=== PATIENT | male | born 1970 | race African-American/Black ===

== ENCOUNTER 2019-12-18 08:53 | Inpatient (IN) | payer OTHER ==
--- OUTSIDE RECORDS SUMMARY | 2019-12-18 08:56 | XMS ---
:1970 [facility] Organization [facility] Support Name Relationship Address Phone UE Unavailable Unavailable Unavailable DAKSHA GILLETTE SELF / SAME PATIENT [address] [place] [address] Re-disclosure Warning The records that you are about to access may contain information from federally- assisted alcohol or drug abuse programs. If such information is present, then the following federally mandated warning applies: This information has been disclosed to you from records protected by federal confidentiality rules (42 CFR part 2). The federal rules prohibit you from making any further disclosure of this information unless further disclosure is expressly permitted by the written consent of the person to whom it pertains or as otherwise permitted by 42 CFR part 2. A general authorization for the release of medical or other information is NOT sufficient for this purpose. The Federal rules restrict any use of the information to criminally investigate or prosecute any alcohol or drug abuse patient.The records that you are about to access may contain highly sensitive health information, the redisclosure of which is protected by Article 27-F of the [facility] Public Health law. If you continue you may haveaccess to information: Regarding HIV / AIDS; Provided by facilities licensed or operated by the [facility] Office of Mental Health; or Provided by the [facility] Office for People With Developmental Disabilities. If such information is present, then the following [facility] mandated warning applies: This information has been disclosed to you from confidential records which are protected by state law. State law prohibits you from making any further disclosure of this information without the specific written consent of the person to whom it pertains, or as otherwise permitted by law. Any unauthorized further disclosure in violation of state law may result in a fine or fpc sentence or both. A general authorization for the release of medical or other information is NOT sufficient authorization for further disclosure. Insurance Providers Payer name Policy type Policy ID Covered Covered constitution party's Policy P sudha / Coverage constitution party ID relationship to Brock Inf ormation type brock BEACON [id number] [address] [place] [address] STRGY-AFF Results ID Date Data Source [id number] 11/12/2019 03:22:00 AM EDT [facility] Name Value Range Interpretation Code Description Data Ca rce(s) Supporting Document(s ) SARS-CoV-2 [facility] RNA [facility] Ql ESTHELA+probe This lab was ordered by [facility] a nd reported by [facility]. ID Date Data Source [id number] 09/06/2019 02:51:00 AM EDT [facility] Name Value Range Interpretation Code Description Data Ca rce(s) Supporting Document(s ) SARS-CoV-2 [facility] RNA [facility] Ql ESTHELA+probe This lab was ordered by [facility] a nd reported by [facility]. Procedure
--- NOTE | 2019-12-18 09:12 | BHS.RME ---
Substance Use & Tx History - Substance Use History Alcohol Substance amount: 1.5 liters of vodka, 1-2 40oz Frequency of use: Daily Substance route: Oral Date of Last Use: 12/17/19 - Last Treatment Date of last treatment: 1st time Physical/Psych/Mental Status - Behavior General Behavior: Increased activity (restlessness, agitation) Eye Contact: Normal Other Behaviors: Mannerisms - Cooperativeness Cooperativeness: Cooperative - Thinking Thought Processes: Tight, Logical, Goal Directed Thought content: Future oriented - Physical Health Problems Is patient presently having any pain?: Yes Does patient presently have any injuries (include location): No Does patient currently have a fever: No CIWA Nausea/Vomitin Muscle Tremors: 2 Anxiety: 2 Agitation: 2 Paroxysmal Sweats: 2 Orientation: 0-Oriented Tacttile Disturbances: 1-Very Mild Itch/Numbness Auditory Disturbances: 1-Very Mild Visual Disturbances: 1-Very Mild Sensitivity Headache: 2-Mild CIWA-Ar Total Score: 16
[2019-12-18 09:31] VITALS: BMI 21.8
--- NOTE | 2019-12-18 09:38 | HP ---
CIWA Score Nausea/Vomitin Muscle Tremors: 2 Anxiety: 2 Agitation: 2 Paroxysmal Sweats: 2 Orientation: 0-Oriented Tacttile Disturbances: 1-Very Mild Itch/Numbness Auditory Disturbances: 1-Very Mild Visual Disturbances: 1-Very Mild Sensitivity Headache: 2-Mild CIWA-Ar Total Score: 16 - Admission Criteria OASAS Guidelines: Admission for Medically Managed Detox: Requires at least one of the followin. CIWA greater than 12 2. Seizures within the past 24 hours 3. Delirium tremens within the past 24 hours 4. Hallucinations within the past 24 hours 5. Acute intervention needed for co occurring medical disorder 6. Acute intervention needed for co occurring psychiatric disorder 7. Severe withdrawal that cannot be handled at a lower level of care (continued vomiting, continued diarrhea, abnormal vital signs) requiring intravenous medication and/or fluids 8. Patient presents the following: CIWA greater than 12 Admission Criteria Met: Admission criteria met Admission ROS [facility] Chief Complaint: 1 am withdrawing, I am sick Allergies/Adverse Reactions: Allergies Allergy/AdvReac Type Severity Reaction Status Date / Time hydrochlorothiazide Allergy Verified 12/18/19 09:49 lisinopril AdvReac Verified 12/18/19 09:49 History of Present Illness: Patient was here for detox on 12/16 but did not meet criteria, he presents this morning for alcohol detox. Patient reports severe GERD, on medication and reports compliance. He reports he has been vomiting since last night and this morning, he vomited blood, not witnessed by staff. He is being monitored, will send to ED if report is confirmed. He has BGM during is 320, 6 units of novolog ordered, he has been non-compliant with his medication.. Exam Limitations: No Limitations - Ebola screening Have you traveled outside of the country in the last 21 days: No Have you had contact with anyone from an Ebola affected area: No Have you been sick,other than usual withdrawal symptoms: No Do you have a fever: No - Review of Systems Constitutional: Chills, Changes in sleep EENT: reports: Blurred Vision (in the left eye, right eye blindness), Dental Problems Respiratory: reports: Cough, SOB with Exertion Cardiac: reports: No Symptoms Reported GI: reports: Nausea, Vomiting, Indigestion, Abdominal cramping, Other (epigastric pain) Musculoskeletal: reports: Back Pain, Muscle Pain, Muscle Weakness, Other (bulging herniated disc) Integumentary: reports: Sweating Neuro: reports: Headache, Tremors Endocrine: reports: No Symptoms Reported Hematology: reports: No Symptoms Reported Psychiatric: reports: No Sypmtoms Reported Other Systems: Reviewed and Negative Patient History - Patient Medical History Hx Anemia: No Hx Asthma: Yes Hx Chronic Obstructive Pulmonary Disease (COPD): Yes Hx Cancer: No Hx Cardiac Disorders: No Hx Congestive Heart Failure: No Hx Hypertension: Yes Hx Hypercholesterolemia: Yes Hx Pacemaker: No HX Cerebrovascular Accident: No Hx Seizures: No Hx Dementia: No Hx Diabetes: Yes Hx Gastrointestinal Disorders: Yes (GERD) Hx Liver Disease: No Hx Genitourinary Disorders: No Hx Sexually Transmitted Disorders: No Hx Renal Disease (ESRD): No Hx Thyroid Disease: No Hx Human Immunodeficiency Virus (HIV): No Hx Hepatitis C: No Hx Depression: No Hx Suicide Attempt: No Hx Bipolar Disorder: No Hx Schizophrenia: No Other Medical History: BPH, herniated disc - Patient Surgical History Past Surgical History: Yes Other Surgical History: Right eye corneal transplant in 2006 Anesthesia Reaction: No - PPD History Previous Implant?: Yes Documented Results: Negative w/proof Implanted On Prior [facility] Admission?: No PPD to be Administered?: Yes - Smoking Cessation Smoking history: Current every day smoker Have you smoked in the past 12 months: Yes Aproximately how many cigarettes per day: 13 Hx Chewing Tobacco Use: No Initiated information on smoking cessation: Yes 'Breaking Loose' booklet given: 12/18/19 - Substance & Tx. History Hx Alcohol Use: Yes Hx Substance Use: No Substance Use Type: Alcohol Hx Substance Use Treatment: No - Substances abused Alcohol Other (specify): vodka Amount used: 1.5 L Age of first use: 20 Date of last use: 12/17/19 Admission Physical Exam BHS - Vital Signs Vital Signs: Vital Signs - 24 hr 12/18/19 09:27 Temperature 97.3 F L Pulse Rate 99 H Respiratory 18 Rate Blood Pressure 135/97 - Physical General Appearance: Yes: No Apparent Distress, Irritable, Sweating HEENTM: Yes: Hearing grossly Normal, Normal Voice, Other (right eye blindness) Respiratory: Yes: Chest Non-Tender, Lungs Clear, No Respiratory Distress, No Accessory Muscle Use Neck: Yes: No masses,lesions,Nodules, Supple Breast: Yes: Breast Exam Deferred Cardiology: Yes: Regular Rhythm, Regular Rate, S1, S2 Abdominal: Yes: Normal Bowel Sounds, Non Tender, Soft Genitourinary: Yes: Hesitency Back: Yes: Normal Inspection Musculoskeletal: Yes: full range of Motion, Gait Steady Extremities: Yes: Normal Range of Motion, Tremors, Other (mycotic nails) Neurological: Yes: Fully Oriented, Alert, Normal Mood/Affect, Normal Response Integumentary: Yes: Normal Color, Clammy Lymphatic: Yes: Within Normal Limits - Diagnostic (1) Alcohol dependence with withdrawal, uncomplicated Current Visit: Yes Status: Acute (2) HTN (hypertension) Current Visit: Yes Status: Chronic Qualifiers: Hypertension type: essential hypertension Qualified Code(s): I10 - Essential (primary) hypertension (3) Diabetes mellitus Current Visit: Yes Status: Chronic Qualifiers: Diabetes mellitus type: type 2 Diabetes mellitus fdc insulin use: with 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 Diabetes mellitus complication status: with neurologic complications Diabetes mellitus complication detail: with polyneuropathy Qu alified Code(s): E11.42 - Type 2 diabetes mellitus with diabetic polyneuropathy; 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 (4) Chronic GERD Current Visit: Yes Status: Acute (5) Herniated disc Current Visit: Yes Status: Chronic Qualifiers: Spinal region: lumbar Qualified Code(s): M51.26 - Other intervertebral disc displacement, lumbar region (6) BPH (benign prostatic hyperplasia) Current Visit: Yes Status: Acute Qualifiers: Lower urinary tract symptom presence: symptoms present Lower urinary tract symptom detail: urinary hesitancy Qualified Code(s): N40.1 - Benign prostatic hyperplasia with lower urinary tract symptoms; R39.11 - Hesitancy of micturition (7) COPD (chronic obstructive pulmonary disease) Current Visit: Yes Status: Chronic Qualifiers: COPD type: chronic bronchitis Cleared for Admission S - Detox or Rehab [facility] Level of Care: Medically Managed Detox Regimen/Protocol: Librium Claeared for Rehab Admission: No Breathalyzer - Breathalyzer Breathalyzer: 0 Urine Drug Screen - Test Device Lot number: [id number] Expiration date: 07/05/21 - Control Is test valid?: Yes - Results Drug screen NEGATIVE: Yes Inpatient Rehab Admission - Rehab Decision to Admit Inpatient rehab admission?: No
--- OUTSIDE RECORDS SUMMARY | 2019-12-18 09:46 | XMS ---
:1970 [facility] Support Name Relationship Address Phone UE Unavailable Unavailable Unavailable DAKSHA GILLETTE SELF / SAME PATIENT [address] [place] [address] Re-disclosure Warning The records that you are [...] is protected by Article 27-F of the [facility] Public Health law. If you continue you may haveaccess to information: Regarding HIV / AIDS; Provided by facilities licensed or operated by the [facility] Office of Mental Health; or Provided by the [facility] Office for People With Developmental Disabilities. If such information is present, then the following [facility] mandated warning applies: This information has [...] law may result in a fine or senior living sentence or both. A general authorization for the release of medical or other information is NOT sufficient authorization for further disclosure. Insurance Providers Payer name Policy type Policy ID Covered Covered libertarian's Policy P sudha / Coverage libertarian ID relationship to Brock Inf ormation type brock BEACON [id number] [address] [place] [address] STRGY-AFF Results ID Date Data Source [id number] 11/12/2019 03:22:00 AM EDT [facility] Name Value Range Interpretation Code Description Data Ca rce(s) Supporting Document(s ) SARS-CoV-2 [facility] RNA [facility] Ql ESTHELA+probe This lab was ordered by [facility] a nd reported by [facility]. ID Date Data Source [id number] 09/06/2019 02:51:00 AM EDT [facility] Name Value Range Interpretation Code Description Data Ca rce(s) Supporting Document(s ) SARS-CoV-2 [facility] RNA [facility] Ql ESTHELA+probe This lab was ordered by [facility] a nd reported by [facility]. Procedure
[2019-12-18] MEDS ORDERED: MAGNESIUM CITRATE 300 ML BOTTLE PO PRN (10:02)
[2019-12-18] MEDS ORDERED: BISMUTH SUBSALICYLATE 524 MG/30 ML UD PO PRN (10:02)
[2019-12-18] MEDS ORDERED: chlordiazePOXIDE HCL 25 MG CAPSULE PO PRN (10:02)
[2019-12-18] MEDS ORDERED: NICOTINE POLACRILEX 2 MG GUM BUC PRN (10:02)
[2019-12-18] MEDS ORDERED: MENTHOL/PHENOL 1 EACH UD MM PRN (10:02)
[2019-12-18] MEDS ORDERED: METHOCARBAMOL 500 MG TABLET PO PRN (10:02)
[2019-12-18] MEDS ORDERED: hydrOXYzine PAMOATE 25 MG CAPSULE (FP) PO PRN (10:02)
[2019-12-18] MEDS ORDERED: IBUPROFEN 400 MG TABLET (FP) PO PRN (10:02)
[2019-12-18] MEDS ORDERED: ACETAMINOPHEN 325 MG TABLET (FP) PO PRN ×2 (10:02)
[2019-12-18] MEDS ORDERED: MAGNESIUM HYDROX 2400MG/30ML ORAL SUSPENSION 30 ML CUP PO PRN (10:02)
[2019-12-18] MEDS ORDERED: INSULIN (NOVOLOG) ASPART 100 UNITS/ML 10ML VIAL SQ ONE (10:09)
[2019-12-18] MEDS ORDERED: ALBUTEROL SO4 HFA INHALER IH PRN (10:15)
[2019-12-18] MEDS ORDERED: INSULIN SLIDING SCALE (NOVOLOG) 1 VIAL SQ ONE (10:53)
[2019-12-18] MEDS: TAMSULOSIN HCL 0.4 MG CAP PO SCH (11:00)
[2019-12-18] MEDS: chlordiazePOXIDE HCL 25 MG CAPSULE PO SCH ×3 (11:00→22:49)
[2019-12-18] MEDS: PANTOPRAZOLE 40 MG TABLET PO SCH (11:01)
[2019-12-18] MEDS: ONDANSETRON *ODT* 4 MG TABLET SL PRN (11:02)
[2019-12-18] MEDS: INSULIN (NOVOLOG MIX 70/30) 100 UNITS/ML MDV SQ SCH (17:43)
[2019-12-18] MEDS: THIAMINE HCL 100 MG TABLET (FP) PO SCH (22:49)
[2019-12-18] MEDS: MELATONIN 5 MG TABLETS PO SCH (22:50)
[2019-12-19] MEDS: chlordiazePOXIDE HCL 25 MG CAPSULE PO SCH ×4 (06:22→22:17)
[2019-12-19] MEDS ORDERED: INSULIN (NOVOLOG MIX 70/30) 100 UNITS/ML MDV SQ SCH (08:50)
--- NOTE | 2019-12-19 10:03 | PN ---
S CIWA - CIWA Score Nausea/Vomitin-No Nausea/No Vomiting Muscle Tremors: 3 Anxiety: 3 Agitation: 3 Paroxysmal Sweats: 3 Orientation: 0-Oriented Tacttile Disturbances: 0-None Auditory Disturbances: 0-None Visual Disturbances: 0-None Headache: 0-None Present CIWA-Ar Total Score: 12 BHS Progress Note (SOAP) Subjective: sweats shakes interrupted sleep agitation chills Objective: 12/19/19 10:02 Vital Signs Temperature 97.3 F L 12/19/19 08:29 Pulse Rate 94 H 12/19/19 08:29 Respiratory Rate 12/19/19 08:29 Blood Pressure 133/86 12/19/19 08:29 O2 Sat by Pulse Oximetry (%) 98 12/19/19 08:29 Laboratory Tests 12/18/19 12/19/19 10:08 06:10 POC Glucometer 320 328 rest of labs pending aaox3 ambulating no acute distress Assessment: 12/19/19 10:06 withdrawals Plan: continue detox increase fluids pending labs motrin 800mg prn insulin s/s adjusted as per pt request. gabapentin 600mg q daily ordered as verified by his pharmacy
[2019-12-19] MEDS: NICOTINE 7 MG/24 HOURS TOPICAL PATCH TD SCH (10:24)
[2019-12-19] MEDS: TAMSULOSIN HCL 0.4 MG CAP PO SCH (10:24)
[2019-12-19] MEDS: PANTOPRAZOLE 40 MG TABLET PO SCH (10:24)
[2019-12-19] MEDS: PRENATAL VITAMINS W/ FOLIC ACID TABLET (FP) PO SCH (10:24)
[2019-12-19] MEDS ORDERED: INSULIN (NOVOLOG) ASPART 100 UNITS/ML 10ML VIAL SQ SCH ×2 (11:00→11:30)
[2019-12-19] MEDS ORDERED: INSULIN SLIDING SCALE (NOVOLOG) 1 VIAL SQ ONE (11:58)
[2019-12-19] MEDS ORDERED: INSULIN (NOVOLOG MIX 70/30) 100 UNITS/ML MDV SQ ONE (12:11)
[2019-12-19] MEDS ORDERED: INSULIN (NOVOLOG) ASPART 100 UNITS/ML 10ML VIAL SQ ONE (12:15)
[2019-12-19] MEDS: INSULIN (NOVOLOG MIX 70/30) 100 UNITS/ML MDV SQ SCH (12:24)
[2019-12-19 12:25] LABS: HEMATOCRIT 46.2 % (35.4-49); MCH 30.8 pg (25.7-33.7); MCHC 34.5 g/dl (32.0-35.9); MEAN CELL VOLUME 89.3 fl (80-96); MEAN PLT VOLUME 9.4 fl (7.5-11.1); PLATELET COUNT 175 K/MM3 (134-434); RBC 5.17 M/mm3 (4.00-5.60); WHITE BLOOD COUNT 5.2 K/mm3 (4.0-10.0)
[2019-12-19] MEDS ORDERED: amLODIPine BESYLATE 10 MG TABLET (FP) PO ONE (12:30)
[2019-12-19 12:52] LABS: ALBUMIN 3.9 g/dl (3.4-5.0); BILIRUBIN,TOTAL 0.9 mg/dL (0.2-1); BLOOD UREA NITROGEN 10.4 mg/dL (7-18); CALCIUM 8.7 mg/dL (8.5-10.1); CREATININE 0.9 mg/dL (0.55-1.3); POTASSIUM 4.5 mmol/L (3.5-5.1); TOT PROT 7.4 g/dl (6.4-8.2)
[2019-12-19] MEDS: GABAPENTIN 300 MG CAPSULE PO SCH (12:53)
[2019-12-19] MEDS: IBUPROFEN 400 MG TABLET (FP) PO PRN ×2 (12:56→22:20)
[2019-12-19] MEDS: GEMFIBROZIL 600 MG TABLET (FP) PO SCH (16:59)
[2019-12-19] MEDS: INSULIN SLIDING SCALE (NOVOLOG) 1 VIAL SQ SCH (17:04)
[2019-12-19] MEDS: THIAMINE HCL 100 MG TABLET (FP) PO SCH (22:17)
[2019-12-19] MEDS: MAG HYDROX/AL HYDROX/SIMETH 30 ML UNIT-DOSE CUP PO PRN (22:23)
[2019-12-19] MEDS: MELATONIN 5 MG TABLETS PO SCH (22:29)
[2019-12-20] MEDS: chlordiazePOXIDE HCL 25 MG CAPSULE PO SCH ×4 (06:33→22:26)
[2019-12-20] MEDS: GEMFIBROZIL 600 MG TABLET (FP) PO SCH ×2 (06:33→17:34)
[2019-12-20] MEDS: INSULIN SLIDING SCALE (NOVOLOG) 1 VIAL SQ SCH ×2 (06:44→17:38)
[2019-12-20] MEDS: INSULIN (NOVOLOG MIX 70/30) 100 UNITS/ML MDV SQ SCH (07:13)
[2019-12-20] MEDS: amLODIPine BESYLATE 10 MG TABLET (FP) PO SCH (10:58)
[2019-12-20] MEDS: PANTOPRAZOLE 40 MG TABLET PO SCH (10:58)
[2019-12-20] MEDS: TAMSULOSIN HCL 0.4 MG CAP PO SCH (10:58)
[2019-12-20] MEDS: GABAPENTIN 300 MG CAPSULE PO SCH (10:58)
[2019-12-20] MEDS: NICOTINE 7 MG/24 HOURS TOPICAL PATCH TD SCH (10:59)
[2019-12-20] MEDS: PRENATAL VITAMINS W/ FOLIC ACID TABLET (FP) PO SCH (10:59)
[2019-12-20] MEDS: MAG HYDROX/AL HYDROX/SIMETH 30 ML UNIT-DOSE CUP PO PRN (11:00)
--- NOTE | 2019-12-20 12:13 | PN ---
[facility] CIWA - CIWA Score Nausea/Vomitin-No Nausea/No Vomiting Muscle Tremors: 3 Anxiety: 3 Agitation: 3 Paroxysmal Sweats: 2 Orientation: 0-Oriented Tacttile Disturbances: 0-None Auditory Disturbances: 0-None Visual Disturbances: 0-None Headache: 0-None Present CIWA-Ar Total Score: 11 S Progress Note (SOAP) Subjective: gassy sweats interrupted sleep Objective: 12/20/19 12:10 Vital Signs Temperature 95.3 F L 12/20/19 09:15 Pulse Rate 71 12/20/19 09:15 Respiratory Rate 12/20/19 09:15 Blood Pressure 110/66 12/20/19 09:15 O2 Sat by Pulse Oximetry (%) 98 12/20/19 09:15 Laboratory Tests 12/18/19 12/18/19 12/19/19 08:30 10:08 06:10 WBC RBC Hgb Hct MCV MCH MCHC RDW Plt Count MPV Sodium Potassium Chloride Carbon Dioxide Anion Gap BUN Creatinine Est GFR (CKD-EPI)AfAm Est GFR (CKD-EPI)NonAf POC Glucometer 320 328 Random Glucose Calcium Total Bilirubin AST ALT Alkaline Phosphatase Total Protein Albumin Syphilis Serology Non-reactive 12/19/19 12/19/19 12/19/19 08:30 08:30 11:50 WBC 5.2 RBC 5.17 Hgb 16.0 Hct 46.2 MCV 89.3 MCH 30.8 MCHC 34.5 RDW 14.0 Plt Count 175 MPV 9.4 Sodium 132 L Potassium 4.5 Chloride 93 L Carbon Dioxide 27 Anion Gap 11 BUN 10.4 Creatinine 0.9 Est GFR (CKD-EPI)AfAm 115.83 Est GFR (CKD-EPI)NonAf 99.94 POC Glucometer 550 Random Glucose 360 H Calcium 8.7 Total Bilirubin 0.9 AST 35 ALT 43 Alkaline Phosphatase 70 Total Protein 7.4 Albumin 3.9 Syphilis Serology 12/19/19 12/20/19 16:52 06:22 WBC RBC Hgb Hct MCV MCH MCHC RDW Plt Count MPV Sodium Potassium Chloride Carbon Dioxide Anion Gap BUN Creatinine Est GFR (CKD-EPI)AfAm Est GFR (CKD-EPI)NonAf POC Glucometer 238 443 Random Glucose Calcium Total Bilirubin AST ALT Alkaline Phosphatase Total Protein Albumin Syphilis Serology labs noted BGM noted aaox3 ambulating no acute distress Assessment: 12/20/19 12:12 withdrawals sx Plan: continue detox gas x ordered prn BID changed to TID along with sliding scale
[2019-12-20] MEDS: IBUPROFEN 400 MG TABLET (FP) PO PRN ×2 (12:55→22:29)
[2019-12-20] MEDS ORDERED: guaiFENesin 200 MG/10 ML 10 ML UNIT-DOSE CUPS PO PRN (14:00)
[2019-12-20] MEDS: SIMETHICONE 80 MG TAB.CHEW (FP) PO PRN (15:17)
[2019-12-20] MEDS ORDERED: INSULIN SLIDING SCALE (NOVOLOG) 1 VIAL SQ ONE (17:20)
[2019-12-20] MEDS: MELATONIN 5 MG TABLETS PO SCH (22:26)
[2019-12-20] MEDS: THIAMINE HCL 100 MG TABLET (FP) PO SCH (22:26)
[2019-12-21] MEDS ORDERED: chlordiazePOXIDE HCL 10 MG CAPSULE PO PRN
[2019-12-21] MEDS: chlordiazePOXIDE HCL 10 MG CAPSULE PO SCH ×4 (07:00→23:57)
[2019-12-21] MEDS: GEMFIBROZIL 600 MG TABLET (FP) PO SCH ×2 (07:01→17:31)
[2019-12-21] MEDS ORDERED: INSULIN (NOVOLOG MIX 70/30) 100 UNITS/ML MDV SQ ONE (07:27)
[2019-12-21] MEDS: INSULIN SLIDING SCALE (NOVOLOG) 1 VIAL SQ SCH ×3 (07:30→17:32)
[2019-12-21] MEDS ORDERED: INSULIN SLIDING SCALE (NOVOLOG) 1 VIAL SQ ONE (07:30)
[2019-12-21] MEDS: INSULIN (NOVOLOG MIX 70/30) 100 UNITS/ML MDV SQ SCH (07:30)
[2019-12-21] MEDS: IBUPROFEN 400 MG TABLET (FP) PO PRN (07:34)
[2019-12-21] MEDS: SIMETHICONE 80 MG TAB.CHEW (FP) PO PRN (07:37)
[2019-12-21] MEDS: NICOTINE 7 MG/24 HOURS TOPICAL PATCH TD SCH (10:56)
[2019-12-21] MEDS: TAMSULOSIN HCL 0.4 MG CAP PO SCH (10:59)
[2019-12-21] MEDS: PANTOPRAZOLE 40 MG TABLET PO SCH (10:59)
[2019-12-21] MEDS: amLODIPine BESYLATE 10 MG TABLET (FP) PO SCH (10:59)
[2019-12-21] MEDS: GABAPENTIN 300 MG CAPSULE PO SCH (10:59)
[2019-12-21] MEDS: PRENATAL VITAMINS W/ FOLIC ACID TABLET (FP) PO SCH (11:00)
--- NOTE | 2019-12-21 13:06 | PN ---
S CIWA - CIWA Score Nausea/Vomitin-No Nausea/No Vomiting Muscle Tremors: 3 Anxiety: 2 Agitation: 2 Paroxysmal Sweats: 2 Orientation: 0-Oriented Tacttile Disturbances: 0-None Auditory Disturbances: 0-None Visual Disturbances: 0-None Headache: 0-None Present CIWA-Ar Total Score: 9 BHS Progress Note (SOAP) Subjective: sweats shakes gas body aches Objective: 12/21/19 13:05 Vital Signs Temperature 98.1 F 12/21/19 08:17 Pulse Rate 95 H 12/21/19 08:17 Respiratory Rate 16 12/21/19 08:17 Blood Pressure 133/88 12/21/19 08:17 O2 Sat by Pulse Oximetry (%) 99 12/21/19 08:17 Laboratory Tests 12/18/19 12/18/19 12/18/19 08:30 09:47 10:08 WBC RBC Hgb Hct MCV MCH MCHC RDW Plt Count MPV Sodium Potassium Chloride Carbon Dioxide Anion Gap BUN Creatinine Est GFR (CKD-EPI)AfAm Est GFR (CKD-EPI)NonAf POC Glucometer 320 Random Glucose Calcium Total Bilirubin AST ALT Alkaline Phosphatase Total Protein Albumin Syphilis Serology Non-reactive COVID-19 (ESTHELA) Not detected 12/19/19 12/19/19 12/19/19 06:10 08:30 08:30 WBC 5.2 RBC 5.17 Hgb 16.0 Hct 46.2 MCV 89.3 MCH 30.8 MCHC 34.5 RDW 14.0 Plt Count 175 MPV 9.4 Sodium 132 L Potassium 4.5 Chloride 93 L Carbon Dioxide 27 Anion Gap 11 BUN 10.4 Creatinine 0.9 Est GFR (CKD-EPI)AfAm 115.83 Est GFR (CKD-EPI)NonAf 99.94 POC Glucometer 328 Random Glucose 360 H Calcium 8.7 Total Bilirubin 0.9 AST 35 ALT 43 Alkaline Phosphatase 70 Total Protein 7.4 Albumin 3.9 Syphilis Serology COVID-19 (ESTHELA) 12/19/19 12/19/19 12/20/19 11:50 16:52 06:22 WBC RBC Hgb Hct MCV MCH MCHC RDW Plt Count MPV Sodium Potassium Chloride Carbon Dioxide Anion Gap BUN Creatinine Est GFR (CKD-EPI)AfAm Est GFR (CKD-EPI)NonAf POC Glucometer 550 238 443 Random Glucose Calcium Total Bilirubin AST ALT Alkaline Phosphatase Total Protein Albumin Syphilis Serology COVID-19 (ESTHELA) 12/20/19 12/21/19 12/21/19 16:56 07:03 11:07 WBC RBC Hgb Hct MCV MCH MCHC RDW Plt Count MPV Sodium Potassium Chloride Carbon Dioxide Anion Gap BUN Creatinine Est GFR (CKD-EPI)AfAm Est GFR (CKD-EPI)NonAf POC Glucometer 338 447 217 Random Glucose Calcium Total Bilirubin AST ALT Alkaline Phosphatase Total Protein Albumin Syphilis Serology COVID-19 (ESTHELA) labs noted aaox3 ambulating no acute distress Assessment: 12/21/19 13:05 withdrawals Plan: continue detox gas x prn increase fluids
[2019-12-21] MEDS: MAG HYDROX/AL HYDROX/SIMETH 30 ML UNIT-DOSE CUP PO PRN (23:25)
[2019-12-21] MEDS: ONDANSETRON *ODT* 4 MG TABLET SL PRN (23:25)
[2019-12-21] MEDS: THIAMINE HCL 100 MG TABLET (FP) PO SCH (23:55)
[2019-12-21] MEDS: MELATONIN 5 MG TABLETS PO SCH (23:55)
[2019-12-22] MEDS ORDERED: chlordiazePOXIDE HCL 10 MG CAPSULE PO SCH (05:00)
[2019-12-22] MEDS: GEMFIBROZIL 600 MG TABLET (FP) PO SCH (07:03)
[2019-12-22] MEDS: INSULIN SLIDING SCALE (NOVOLOG) 1 VIAL SQ SCH (08:04)
[2019-12-22] MEDS: INSULIN (NOVOLOG MIX 70/30) 100 UNITS/ML MDV SQ SCH (08:06)
[2019-12-22] MEDS ORDERED: INSULIN SLIDING SCALE (NOVOLOG) 1 VIAL SQ ONE (08:44)
[2019-12-22 10:45] VITALS: BP 127/76; PULSE 118; TEMP 96.4
--- NOTE | 2019-12-22 13:39 | DS ---
[facility] Detox Discharge Summary Admission Date: 12/18/19 Discharge Date: 12/22/19 - History Present History: Alcohol Dependence - Physical Exam Results Vital Signs: Vital Signs Temperature 96.4 F L 12/22/19 09:00 Pulse Rate 118 H 12/22/19 09:00 Respiratory Rate 18 12/22/19 09:00 Blood Pressure 127/76 12/22/19 09:00 O2 Sat by Pulse Oximetry (%) 100 12/22/19 09:00 Pertinent Admission Physical Exam Findings: Vital Signs Temperature 96.4 F L 12/22/19 09:00 Pulse Rate 118 H 12/22/19 09:00 Respiratory Rate 18 12/22/19 09:00 Blood Pressure 127/76 12/22/19 09:00 O2 Sat by Pulse Oximetry (%) 100 12/22/19 09:00 Laboratory Tests 12/18/19 12/18/19 12/18/19 08:30 09:47 10:08 WBC RBC Hgb Hct MCV MCH MCHC RDW Plt Count MPV Sodium Potassium Chloride Carbon Dioxide Anion Gap BUN Creatinine Est GFR (CKD-EPI)AfAm Est GFR (CKD-EPI)NonAf POC Glucometer 320 Random Glucose Calcium Total Bilirubin AST ALT Alkaline Phosphatase Total Protein Albumin Syphilis Serology Non-reactive COVID-19 (ESTHELA) Not detected 12/19/19 12/19/19 12/19/19 06:10 08:30 08:30 WBC 5.2 RBC 5.17 Hgb 16.0 Hct 46.2 MCV 89.3 MCH 30.8 MCHC 34.5 RDW 14.0 Plt Count 175 MPV 9.4 Sodium 132 L Potassium 4.5 Chloride 93 L Carbon Dioxide 27 Anion Gap 11 BUN 10.4 Creatinine 0.9 Est GFR (CKD-EPI)AfAm 115.83 Est GFR (CKD-EPI)NonAf 99.94 POC Glucometer 328 Random Glucose 360 H Calcium 8.7 Total Bilirubin 0.9 AST 35 ALT 43 Alkaline Phosphatase 70 Total Protein 7.4 Albumin 3.9 Syphilis Serology COVID-19 (ESTHELA) 12/19/19 12/19/19 12/20/19 11:50 16:52 06:22 WBC RBC Hgb Hct MCV MCH MCHC RDW Plt Count MPV Sodium Potassium Chloride Carbon Dioxide Anion Gap BUN Creatinine Est GFR (CKD-EPI)AfAm Est GFR (CKD-EPI)NonAf POC Glucometer 550 238 443 Random Glucose Calcium Total Bilirubin AST ALT Alkaline Phosphatase Total Protein Albumin Syphilis Serology COVID-19 (ESTHELA) 12/20/19 12/21/19 12/21/19 16:56 07:03 11:07 WBC RBC Hgb Hct MCV MCH MCHC RDW Plt Count MPV Sodium Potassium Chloride Carbon Dioxide Anion Gap BUN Creatinine Est GFR (CKD-EPI)AfAm Est GFR (CKD-EPI)NonAf POC Glucometer 338 447 217 Random Glucose Calcium Total Bilirubin AST ALT Alkaline Phosphatase Total Protein Albumin Syphilis Serology COVID-19 (ESTHELA) 12/21/19 12/22/19 16:56 08:01 WBC RBC Hgb Hct MCV MCH MCHC RDW Plt Count MPV Sodium Potassium Chloride Carbon Dioxide Anion Gap BUN Creatinine Est GFR (CKD-EPI)AfAm Est GFR (CKD-EPI)NonAf POC Glucometer 331 337 Random Glucose Calcium Total Bilirubin AST ALT Alkaline Phosphatase Total Protein Albumin Syphilis Serology COVID-19 (ESTHELA) labs noted aaox3 ambulating no acute distress lungs CTA - Treatment Hospital Course: Detox Protocol Followed, Detoxed Safely, Responded well, Discharged Condition Good, Rehab Referral Accepted - Medication Discharge Medications: Ambulatory Orders Albuterol Sulfate Inhaler - [Ventolin Hfa Inhaler -] 2 inh PO Q4H 12/18/19 Insulin (Novolog 70/30) [Novolog Mix 70/30 Vial] 35 unit SQ BID 12/18/19 Tamsulosin HCl [Flomax] 0.4 mg PO DAILY 12/18/19 - Diagnosis (1) Alcohol dependence with withdrawal, uncomplicated Current Visit: Yes Status: Acute (2) BPH (benign prostatic hyperplasia) Current Visit: Yes Status: Acute Qualifiers: Lower urinary tract symptom presence: symptoms present Lower urinary tract symptom detail: urinary hesitancy Qualified Code(s): N40.1 - Benign prostatic hyperplasia with lower urinary tract symptoms; R39.11 - Hesitancy of micturition (3) Chronic GERD Current Visit: Yes Status: Acute (4) COPD (chronic obstructive pulmonary disease) Current Visit: Yes Status: Chronic Qualifiers: COPD type: chronic bronchitis (5) Diabetes mellitus Current Visit: Yes Status: Chronic Qualifiers: Diabetes mellitus type: type 2 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 terminal 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 Diabetes mellitus complication status: with neurologic complications Diabetes mellitus complication detail: with polyneuropathy Qualified Code(s): E11.42 - Type 2 diabetes mellitus with diabetic polyneuropathy; Z79.4 - long-term (current) use of insulin (6) HTN (hypertension) Current Visit: Yes Status: Chronic Qualifiers: Hypertension type: essential hypertension Qualified Code(s): I10 - Essential (primary) hypertension (7) Herniated disc Current Visit: Yes Status: Chronic Qualifiers: Spinal region: lumbar Qualified Code(s): M51.26 - Other intervertebral disc displacement, lumbar region (8) Hyperlipemia Current Visit: No Status: Chronic - AMA Did Patient Leave Against Medical Advice: No
[2019-12-23] MEDS ORDERED: chlordiazePOXIDE HCL 10 MG CAPSULE PO ONE (05:00)
--- NOTE | 2019-12-23 10:32 | EKG ---
Test Reason : Blood Pressure : / mmHG Vent. Rate : 083 BPM Atrial Rate : 083 BPM P-R Int : 130 ms QRS Dur : 092 ms QT Int : 366 ms P-R-T Axes : 047 047 043 degrees QTc Int : 430 ms NORMAL SINUS RHYTHM NORMAL ECG NO PREVIOUS ECGS AVAILABLE Confirmed by EMRCEDES JIANG MD ([id number]) on 12/23/2019 10:32:26 AM Referred By: ZHENG BENSON Confirmed By:MERCEDES JIANG MD
== END 2019-12-22 09:27 | disposition home or self-care (01) | DRG 775 ==
LOC: YASAS 08:53 → Y6N 09:42
PROVIDERS: ADMIT Allergy & Immunology; ATTEND Allergy & Immunology
PROC: HZ2ZZZZ Detoxification Services for Substance Abuse Treatment (ICD-10-PCS; principal; 2019-12-18)
DX: F10.230 Alcohol dependence with withdrawal, uncomplicated (principal); I10 Essential (primary) hypertension; E11.9 Type 2 diabetes mellitus without complications; Z79.4 Long term (current) use of insulin; K21.9 Gastro-esophageal reflux disease without esophagitis; J42 Unspecified chronic bronchitis; E78.5 Hyperlipidemia, unspecified; N40.1 Benign prostatic hyperplasia with lower urinary tract symptoms; R39.11 Hesitancy of micturition; M51.26 Other intervertebral disc displacement, lumbar region; R05 Cough; H54.61 Unqualified visual loss, right eye, normal vision left eye; Z94.7 Corneal transplant status; Z88.8 Allergy status to other drugs, medicaments and biological substances
CPT/HCPCS: 36415; 80053; 82962; 85027; 86780; 93005; 93010; Q0162; U0003

== ENCOUNTER 2019-12-26 11:35 | Inpatient (IN) | payer OTHER ==
--- NOTE | 2019-12-26 11:39 | BHS.RME ---
Substance Use & Tx History - Substance Use History Alcohol Substance amount: 1.5 pints vodka Frequency of use: Daily Substance route: Oral Date of Last Use: 12/18/19 Nicotine Substance amount: 13 ciggs Frequency of use: Daily Substance route: Smoking Date of Last Use: 12/26/19 Physical/Psych/Mental Status - Behavior General Behavior: Increased activity (restlessness, agitation) Eye Contact: Normal - Cooperativeness Cooperativeness: Cooperative - Thinking Thought Processes: Tight, Logical, Goal Directed - Physical Health Problems Is patient presently having any pain?: No Does patient presently have any injuries (include location): No Does patient currently have a fever: No Is patient : No CIWA Nausea/Vomitin-No Nausea/No Vomiting Muscle Tremors: None Anxiety: 0-No Anxiety, at Ease Agitation: 0-Normal Activity Paroxysmal Sweats: No Perspiration Orientation: 0-Oriented Tacttile Disturbances: 0-None Auditory Disturbances: 0-None Visual Disturbances: 0-None Headache: 0-None Present CIWA-Ar Total Score: 0
--- NOTE | 2019-12-26 15:03 | HP ---
CIWA Score Nausea/Vomitin-No Nausea/No Vomiting Muscle Tremors: None Anxiety: 0-No Anxiety, at Ease Agitation: 0-Normal Activity Paroxysmal Sweats: No Perspiration Orientation: 0-Oriented Tacttile Disturbances: 0-None Auditory Disturbances: 0-None Visual Disturbances: 0-None Headache: 0-None Present CIWA-Ar Total Score: 0 - Admission Criteria OASAS Guidelines: Admission for Medically Managed Detox: Requires at least one of the followin. CIWA greater than 12 2. Seizures within the past 24 hours 3. Delirium tremens within the past 24 hours 4. Hallucinations within the past 24 hours 5. Acute intervention needed for co occurring medical disorder 6. Acute intervention needed for co occurring psychiatric disorder 7. Severe withdrawal that cannot be handled at a lower level of care (continued vomiting, continued diarrhea, abnormal vital signs) requiring intravenous medication and/or fluids 8. Admitting History and Physical - Admission Chief Complaint: Mr. Pompa is a 49 yo man who presents to [facility] stating he is here for "rehabilitation". History of Present Illness: Mr. Pompa is a 49 yo man who presents to [facility] stating he is here for "rehabilitation". He completed detox on December 21, 2018. 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 The information displayed on this report is compiled from pharmacy submissions to the Department, and accurately reflects the information as submitted by the pharmacies. This report was requested by: Maria Antonia Carrillo | Reference #: [id number] Others' Prescriptions Patient Name: Casey Pompa Date: 1970 Address: [address] [place] [address] Sex: Male Rx Written Rx Dispensed Drug Quantity Days Supply Prescriber Name 12/01/2019 12/07/2019 oxycodone-acetaminophen 10-325 mg tab 60 30 BeBrain damon 11/01/2019 11/08/2019 oxycodone-acetaminophen 10-325 mg tab 60 30 BeBrain damon 10/07/2019 10/10/2019 oxycodone-acetaminophen 10-325 mg tab 60 30 Roscoe Larkin () 09/30/2019 10/03/2019 oxycodone-acetaminophen 10-325 mg tab 21 7 Brain Rangel 09/23/2019 09/23/2019 oxycodone-acetaminophen 10-325 mg tab 21 7 Roscoe Larkin () 09/16/2019 09/16/2019 oxycodone-acetaminophen 10-325 mg tab 21 7 Roscoe Larkin () 08/29/2019 08/29/2019 oxycodone-acetaminophen 10-325 mg tab 42 14 Joan Cadena C 08/15/2019 08/15/2019 endocet 10-325 mg tablet 21 7 Sonia, Kristen 07/15/2019 07/15/2019 endocet 10-325 mg tablet 90 30 Saeed Vail K 06/14/2019 06/14/2019 endocet 10-325 mg tablet 90 30 Joan Cadena C 05/16/2019 05/16/2019 oxycodone-acetaminophen 10-325 mg tab 90 30 Sonia, Kristen 04/15/2019 04/15/2019 oxycodone-acetaminophen 10-325 mg tab 90 30 Sonia, Kristen History Source: Patient Limitations to Obtaining History: No Limitations - Smoking History Smoking history: Current every day smoker Have you smoked in the past 12 months: Yes Aproximately how many cigarettes per day: 13 - Alcohol/Substance Use Hx Alcohol Use: Yes Admission [facility] Allergies/Adverse Reactions: Allergies Allergy/AdvReac Type Severity Reaction Status Date / Time hydrochlorothiazide Allergy Verified 12/18/19 09:49 lisinopril AdvReac Verified 09/20/20 09:49 Exam Limitations: No Limitations - Ebola screening Have you traveled outside of the country in the last 21 days: No Have you been sick,other than usual withdrawal symptoms: No Do you have a fever: No - Review of Systems Constitutional: Changes in sleep (trouble falling and staying asleep), Unintentional Wgt. Loss (lost over 100 lbs one year ago, hospitalized with pancreatitis x 7) EENT: reports: Other (right eye blind) Respiratory: reports: Cough (hx COPd) Cardiac: reports: Other (chronic, one year of chest pain, seen by MD, referred to Cardiology, currently no pain, by hx sx worse with heavy lifting) GI: reports: No Symptoms Reported : reports: No Symptoms Reported Musculoskeletal: reports: No Symptoms Reported Integumentary: reports: Pruritus (diffuse, random locations) Neuro: reports: No Symptoms reported Endocrine: reports: Other (home glucose 300-400) Hematology: reports: No Symptoms Reported Psychiatric: reports: No Sypmtoms Reported Patient History - Patient Medical History Hx Anemia: No Hx Asthma: Yes Hx Chronic Obstructive Pulmonary Disease (COPD): Yes Hx Cancer: No Hx Cardiac Disorders: No Hx Congestive Heart Failure: No Hx Hypertension: Yes Hx Hypercholesterolemia: Yes Hx Pacemaker: No HX Cerebrovascular Accident: No Hx Seizures: No Hx Dementia: No Hx Diabetes: Yes Hx Gastrointestinal Disorders: Yes (GERD) Hx Liver Disease: No Hx Genitourinary Disorders: No Hx Sexually Transmitted Disorders: No Hx Renal Disease (ESRD): No Hx Thyroid Disease: No Hx Human Immunodeficiency Virus (HIV): No Hx Hepatitis C: No Hx Depression: No Hx Suicide Attempt: No Hx Bipolar Disorder: No Hx Schizophrenia: No - Patient Surgical History Past Surgical History: Yes Hx Neurologic Surgery: No Hx Cataract Extraction: ([employer]NE[employer] TRANSPLANT RT EYE 2006) Hx Cardiac Surgery: No Hx Lung Surgery: No Hx Breast Surgery: No Hx Breast Biopsy: No Hx Abdominal Surgery: No Hx Appendectomy: No Hx Cholecystectomy: No Hx Genitourinary Surgery: No Hx Section: No Hx Orthopedic Surgery: No Other Surgical History: Right eye corneal transplant in 2006 Anesthesia Reaction: No - PPD History Date: 12/20/19 - Smoking Cessation Smoking history: Current every day smoker Have you smoked in the past 12 months: Yes Aproximately how many cigarettes per day: 13 Hx Chewing Tobacco Use: No Initiated information on smoking cessation: Yes 'Breaking Loose' booklet given: 12/26/19 Admission Physical Exam [facility] - Physical General Appearance: Yes: No Apparent Distress, Nourished HEENTM: Yes: Hearing grossly Normal, Normocephalic, Normal Voice, Other ( opacified right eye, blind right eye. Soft tissue mass right side of neck ~3" ovoid, suspect lipoma) Respiratory: Yes: Lungs Clear, Normal Breath Sounds, Other (loose, nonproductive cough) Neck: Yes: Within Normal Limits, Supple Breast: Yes: Breast Exam Deferred Cardiology: Yes: Regular Rhythm, Regular Rate Abdominal: Yes: Normal Bowel Sounds, Non Tender, Flat, Soft Genitourinary: Yes: Other (deferred) Back: Yes: Normal Inspection Musculoskeletal: Yes: Gait Steady Extremities: Yes: Normal Inspection, Non-Tender Neurological: Yes: Alert, Normal Response Integumentary: Yes: Normal Color, Dry, Warm - Diagnostic (1) Alcohol use disorder Current Visit: Yes Status: Chronic (2) Nicotine dependence Current Visit: Yes Status: Chronic Qualifiers: Nicotine product type: cigarettes Substance use status: uncomplicated Qualified Code(s): F17.210 - Nicotine dependence, cigarettes, uncomplicated (3) Chronic GERD Current Visit: Yes Status: Chronic (4) COPD (chronic obstructive pulmonary disease) Current Visit: Yes Status: Chronic Qualifiers: COPD type: chronic bronchitis (5) Diabetes mellitus Current Visit: Yes Status: Chronic Qualifiers: Diabetes mellitus type: type 2 Diabetes mellitus penitentiary insulin use: with terminologist use Diabetes mellitus complication status: with neurologic complications Diabetes mellitus complication detail: with polyneuropathy Qualified Code(s): E11.42 - Type 2 diabetes mellitus with diabetic polyneuropathy; Z79.4 - manager terminal (current) use of insulin (6) HTN (hypertension) Current Visit: Yes Status: Chronic Qualifiers: Hypertension type: essential hypertension Qualified Code(s): I10 - Essential (primary) hypertension (7) Hyperlipemia Current Visit: No Status: Chronic (8) Blind right eye Current Visit: No Status: Chronic Cleared for Admission [facility] - Detox or Rehab [facility] Level of Care: Medically Supervised Breathalyzer - Breathalyzer Breathalyzer: 0 Urine Drug Screen - Test Device Lot number: [id number] Expiration date: 07/05/21 - Control Is test valid?: Yes - Results Drug screen NEGATIVE: No Urine drug screen results: OXY-Oxycodone, BZO-Benzodiazepines Inpatient Rehab Admission - Rehab Decision to Admit Inpatient rehab admission?: Yes - Initial Determination Are CD services needed?: Yes Free of communicable disease: Yes Not in need of hospitalization: Yes - Rehab Admission Criteria Previous failed treatment: Yes Poor recovery environment: Yes Comorbidities: Yes Lacks judgement: Yes Patient is meeting Inpatient Rehab admission criteria:: Yes
[2019-12-26] MEDS ORDERED: ACETAMINOPHEN 325 MG TABLET (FP) PO PRN (15:33)
[2019-12-26] MEDS ORDERED: MAG HYDROX/AL HYDROX/SIMETH 30 ML UNIT-DOSE CUP PO PRN (15:33)
[2019-12-26] MEDS ORDERED: P-EPHED 60MG/TRIPROLIDI 2.5MG TABLET PO PRN (15:33)
[2019-12-26] MEDS ORDERED: MAGNESIUM HYDROX 2400MG/30ML ORAL SUSPENSION 30 ML CUP PO PRN (15:33)
[2019-12-26] MEDS ORDERED: IBUPROFEN 400 MG TABLET (FP) PO PRN (15:33)
[2019-12-26] MEDS ORDERED: NICOTINE POLACRILEX 2 MG GUM BC PRN (15:33)
[2019-12-26] MEDS ORDERED: MAGNESIUM CITRATE 300 ML BOTTLE PO PRN (15:33)
[2019-12-26] MEDS ORDERED: LOPERAMIDE HCL 2 MG CAPSULE PO PRN (15:33)
[2019-12-26] MEDS ORDERED: guaiFENesin 200 MG/10 ML 10 ML UNIT-DOSE CUPS PO PRN (15:33)
[2019-12-26] MEDS ORDERED: INSULIN (NOVOLOG MIX 70/30) 100 UNITS/ML MDV SQ SCH ×2 (16:30→17:39)
[2019-12-26 17:26] VITALS: BP 122/81; PULSE 86; TEMP 98.4
[2019-12-26] MEDS: hydrOXYzine PAMOATE 25 MG CAPSULE (FP) PO SCH ×2 (17:27→22:19)
[2019-12-26] MEDS: GABAPENTIN 300 MG CAPSULE PO SCH (17:27)
[2019-12-26] MEDS ORDERED: INSULIN (NOVOLOG MIX 70/30) 100 UNITS/ML MDV SQ ONE (17:42)
[2019-12-26] MEDS: NICOTINE 14 MG/24 HOURS TOPICAL PATCH TD SCH (17:58)
--- OUTSIDE RECORDS SUMMARY | 2019-12-26 18:13 | XMS ---
:1970 Author Organization [facility] Support Name Relationship Address Phone UE Unavailable Unavailable Unavailable DAKSHA GILLETTE SELF / SAME PATIENT [address] [place] [address] DAKSHA GILLETTE Self [address] [place] [address] Re-disclosure Warning The records that you are [...] is protected by Article 27-F of the [facility] Public Health law. If you continue you may haveaccess to information: Regarding HIV / AIDS; Provided by facilities licensed or operated by the [facility] Office of Mental Health; or Provided by the [facility] Office for People With Developmental Disabilities. If such information is present, then the following [facility] mandated warning applies: This information has [...] may result in a fine or senior care sentence or both. A general authorization for the release of medical or other information is NOT sufficient authorization for further disclosure. Insurance Providers Payer name Policy type Policy ID Covered Covered constitution party's Policy P sudha / Coverage constitution party ID relationship to [facility] Inf ormation type brock BEACON [id number] SP [id number] HEALTH STRGY-AFF [employer]ON [id number] SP [id number] 401 HEALTH STRGY-AFF Results ID Date Data Source [id number] 11/12/2019 03:22:00 AM EDT [facility] Name Value Range Interpretation Code Description Data Ca rce(s) Supporting Document(s ) SARS-CoV-2 [facility] RNA [facility] Ql ESTHELA+probe This lab was ordered by [facility] a nd reported by [facility]. ID Date Data Source [id number] 09/06/2019 02:51:00 AM EDT [facility] Name Value Range Interpretation Code Description Data Ca rce(s) Supporting Document(s ) SARS-CoV-2 [facility] RNA Resp [facility] Ql ESTHELA+probe This lab was ordered by [facility] a nd reported by [facility]. Procedure
[2019-12-26] MEDS: INSULIN (NOVOLOG MIX 70/30) 100 UNITS/ML MDV SQ SCH (18:42)
[2019-12-26] MEDS ORDERED: INSULIN (NOVOLOG) ASPART 100 UNITS/ML 10ML VIAL SQ ONE (21:48)
--- NOTE | 2019-12-26 21:49 | PN ---
S Progress Note Note: [facility] units of novolog sq x1 now
[2019-12-26] MEDS ORDERED: THIAMINE HCL 100 MG TABLET (FP) PO SCH (22:00)
[2019-12-26] MEDS ORDERED: MELATONIN 5 MG TABLETS PO SCH (22:00)
[2019-12-26] MEDS: GEMFIBROZIL 600 MG TABLET (FP) PO SCH (22:19)
[2019-12-27] MEDS: hydrOXYzine PAMOATE 25 MG CAPSULE (FP) PO SCH ×3 (08:35→13:38)
[2019-12-27] MEDS ORDERED: PRENATAL VITAMINS W/ FOLIC ACID TABLET (FP) PO SCH (10:00)
[2019-12-27] MEDS: GABAPENTIN 300 MG CAPSULE PO SCH (10:37)
[2019-12-27] MEDS: GEMFIBROZIL 600 MG TABLET (FP) PO SCH (10:37)
[2019-12-27] MEDS: NICOTINE 14 MG/24 HOURS TOPICAL PATCH TD SCH (10:38)
[2019-12-27] MEDS ORDERED: INSULIN (NOVOLOG) ASPART 100 UNITS/ML 10ML VIAL SQ ONE (11:59)
[2019-12-27] MEDS: INSULIN (NOVOLOG MIX 70/30) 100 UNITS/ML MDV SQ SCH (12:17)
--- NOTE | 2019-12-27 12:29 | PN ---
[facility] Progress Note Note: Pt is a new admission yesterday from [facility]. Pt was discharged from [address] [place] [address] on 12/22/19 and returned to facility yesterday for rehab. PMH: DM, HTN, spinal bulging and herniated discs, PvD, neuropoathy, COPD, HLD,GERD PSH: [facility] corneal [facility] 2006, right eye blind Psych: none SOC: homeless on the streets Reports he has primary care with Ros[facility] Larkin on [place], [place] Vital Signs - 24 hr 12/26/19 12/26/19 17:25 20:35 Temperature 98.4 F Pulse Rate 86 Respiratory 18 Rate Blood Pressure 122/81 O2 Sat by Pulse 95 Oximetry (%) Laboratory Tests 12/26/19 12/26/19 12/26/19 12:30 12:41 17:26 POC Glucometer 332 230 SARS-CoV-2 (PCR) Negative 12/26/19 12/27/19 20:18 11:44 POC Glucometer 303 497 SARS-CoV-2 (PCR) Alert o x 3 nad oob ambulating with steady gait extremities;no edema, skin intact Rehab pt Increase po fluids maintain safety
--- NOTE | 2019-12-27 16:07 | DS ---
[facility] Rehab Discharge Summary - [facility] Rehab Discharge Summary Admission Date: 12/26/19 Discharge Date: 12/28/19 - History Present History: Alcohol dependence Pertinent Past History: HTN HLD DM GERD BPH COPD Hx Herniated Disc PVD Neuropathy Blind Right eye - Discharge Physical Exam Vital Signs: Vital Signs Temperature 98.4 F 12/26/19 17:25 Pulse Rate 86 12/26/19 17:25 Respiratory Rate 18 12/26/19 17:25 Blood Pressure 122/81 12/26/19 17:25 O2 Sat by Pulse Oximetry (%) 95 12/26/19 20:35 Alert o x 3 nad;no resp difficulty oob ambulating with steady gait MSK:Active FROM, all extremities Pertinent Admission Physical Exam Findings: Laboratory Tests 12/26/19 12/26/19 12/26/19 12:30 12:41 17:26 POC Glucometer 332 230 SARS-CoV-2 (PCR) Negative 12/26/19 12/27/19 20:18 11:44 POC Glucometer 303 497 SARS-CoV-2 (PCR) - Treatment Discharge Condition: Discharge condition good Hospital Course: Pt admitted to rehab but requesting to discharge stating because he will not get housing from this program. - Medication Discharge Medications: Ambulatory Orders Albuterol Sulfate Inhaler - [Ventolin Hfa Inhaler -] 2 inh PO Q4H PRN 12/18/19 Insulin (Novolog 70/30) [Novolog Mix 70/30 Vial] 45 unit SQ BID 12/18/19 Tamsulosin HCl [Flomax] 0.4 mg PO DAILY 12/18/19 Gabapentin [Neurontin] 600 mg PO DAILY 12/26/19 Gemfibrozil [Lopid] 600 mg PO BID 12/26/19 Meloxicam [Mobic] 15 mg PO DAILY 12/26/19 - Medication-Assisted Treatment (MAT) Medication-Assisted Treatment (MAT): No - Discharge Instructions Diet, activity, other medical instructions: Diet:NCS Activity:oob ad juliana Other medical instructions:[facility] for CD aftercare Follow up with Dr. Roscoe Larkin for medical management. - Diagnosis (1) BPH (benign prostatic hyperplasia) Status: Acute Qualifiers: Lower urinary tract symptom presence: symptoms present Lower urinary tract symptom detail: urinary hesitancy Qualified Code(s): N40.1 - Benign prostatic hyperplasia with lower urinary tract symptoms; R39.11 - Hesitancy of micturition (2) Alcohol use disorder Status: Chronic (3) Blind right eye Status: Chronic (4) COPD (chronic obstructive pulmonary disease) Status: Chronic Qualifiers: COPD type: chronic bronchitis Chronic bronchitis type: unspecified Qualified Code(s): J42 - Unspecified chronic bronchitis (5) Chronic GERD Status: Chronic (6) Diabetes mellitus Status: Chronic Qualifiers: Diabetes mellitus type: type 2 Diabetes mellitus half-way insulin use: with half-way use Diabetes mellitus complication status: with neurologic complications Diabetes mellitus complication detail: with polyneuropathy Qualified Code(s): E11.42 - Type 2 diabetes mellitus with diabetic polyneuropathy; Z79.4 - adjunct faculty for medical terminology (current) use of insulin (7) HTN (hypertension) Status: Chronic Qualifiers: Hypertension type: essential hypertension Qualified Code(s): I10 - Essential (primary) hypertension (8) Herniated disc Status: Chronic Qualifiers: Spinal region: lumbar Qualified Code(s): M51.26 - Other intervertebral disc displacement, lumbar region (9) Hyperlipemia Status: Chronic (10) Nicotine dependence Status: Chronic Qualifiers: Nicotine product type: cigarettes Substance use status: uncomplicated Qualified Code(s): F17.210 - Nicotine dependence, cigarettes, uncomplicated - Follow-up Referral Minutes to complete discharge: 20 - AMA Did Patient Leave Against Medical Advice: Yes
[2019-12-27] MEDS ORDERED: INSULIN SLIDING SCALE (NOVOLOG) 1 VIAL SQ SCH (16:30)
== END 2019-12-27 14:00 | disposition left against medical advice (07) | DRG 770 ==
LOC: YASAS 11:35 → Y5N 16:15
PROVIDERS: ADMIT Allergy & Immunology; ATTEND Allergy & Immunology
PROC: HZ42ZZZ Group Counseling for Substance Abuse Treatment, Cognitive-Behavioral (ICD-10-PCS; principal; 2019-12-26)
DX: F10.20 Alcohol dependence, uncomplicated (principal); F17.210 Nicotine dependence, cigarettes, uncomplicated; G62.9 Polyneuropathy, unspecified; E78.5 Hyperlipidemia, unspecified; E11.9 Type 2 diabetes mellitus without complications; Z79.4 Long term (current) use of insulin; I10 Essential (primary) hypertension; I73.9 Peripheral vascular disease, unspecified; J42 Unspecified chronic bronchitis; K21.9 Gastro-esophageal reflux disease without esophagitis; L29.8 Other pruritus; H54.61 Unqualified visual loss, right eye, normal vision left eye; R63.4 Abnormal weight loss; Z94.7 Corneal transplant status; Z88.8 Allergy status to other drugs, medicaments and biological substances; Z59.0 Homelessness
CPT/HCPCS: 82962; U0003